=== PATIENT | female | born 1935 | race Caucasian/White ===

== ENCOUNTER 2021-04-19 03:06 | Emergency (ER) | payer OTHER ==
[~2021-04-19] VITALS: Ht 172.7 cm; Wt 60.3 kg
--- NOTE | 2021-04-19 03:12 | NUR ---
[id number]. MID STERNAL CP 30 MIN FREIGHT CONDUCTOR NON RADIATING SHARP. PATIENT ALERT AND ORIENTED X3. AMBULATORY WITH NON LABORED BREATHING. PATIENT ON MONITOR AND POX.
--- NOTE | 2021-04-19 03:41 | NUR ---
COVID SWAB DONE AND SENT TO LAB
--- NOTE | 2021-04-19 03:41 | NUR ---
[facility] @ BEDSIDE
[2021-04-19 03:54] LABS: BASOPHILS % (AUTO) 0.7 % (0.0-2.0); EOSINOPHILS % (AUTO) 2.2 % (0.0-6.0); HEMATOCRIT 25 % (33-45); HEMOGLOBIN 8.2 g/dL (11.5-14.8); LYMPHOCYTES # (AUTO) 1.4 K/uL (0.8-4.8); LYMPHOCYTES % (AUTO) 25.6 % (20.0-44.0); MEAN CORPUSCULAR HGB CONC 33 g/dl (31.0-36.0); MEAN CORPUSCULAR VOLUME 83 fL (82-100); MONOCYTES # (AUTO) 0.8 K/uL (0.1-1.30); MONOCYTES % (AUTO) 13.7 % (2.0-12.0); NEUTROPHILS # (AUTO) 3.2 K/uL (1.8-8.9); NEUTROPHILS % (AUTO) 57.8 % (43.0-81.0); PLATELET COUNT (AUTO) 290 K/uL (150-450); RED BLOOD CELL COUNT(AUTO) 3.01 MIL/uL (4.0-5.2); WHITE BLOOD COUNT (AUTO) 5.5 K/uL (4.3-11.0)
[2021-04-19 04:11] LABS: ALANINE AMINOTRANSFERASE 27 U/L (12-78); ALBUMIN 3.6 g/dL (3.4-5.0); ALKALINE PHOSPHATASE 62 U/L (46-116); ASPARTATE AMINOTRANSFERASE 23 U/L (15-37); BILIRUBIN,DIRECT 0.1 mg/dL (0.0-0.2); BILIRUBIN,TOTAL 0.3 mg/dL (0.2-1.0); CALCIUM, SERUM 8.8 mg/dL (8.5-10.1); CARBON DIOXIDE 25 mmol/L (21-32); GLUCOSE 87 mg/dL (74-106); TOTAL PROTEIN, SERUM 6.8 g/dL (6.4-8.2); UREA NITROGEN, BLOOD 37 mg/dL (7-18)
[2021-04-19 04:22] LABS: CHLORIDE 102 mmol/L (98-107); POTASSIUM 3.8 mmol/L (3.5-5.1); SODIUM SERUM 135 mmol/L (136-145)
--- NOTE | 2021-04-19 04:54 | NUR ---
MOVE PACKET AND CLINICALS SUBMITTED
[2021-04-19] MEDS ORDERED: APIX5TAB PO (07:09)
[2021-04-19] MEDS ORDERED: GABA-532 PO (07:09)
[2021-04-19] MEDS ORDERED: DULO20CA19 PO (07:09)
[2021-04-19] MEDS ORDERED: METOPROLOL TARTRATE 25 MG TABLET PO ONE (07:30)
[2021-04-19] MEDS ORDERED: METOPROLOL TARTRATE 25 MG TABLET ONE (07:46)
--- NOTE | 2021-04-19 07:55 | NUR ---
ASSUME PT CARE, KEPT COMFORTABLE. ON MONITOR W/ STABLE VITALS. MEDICATED ORDERED. WILL CONTINUE TO MONITOR.
--- NOTE | 2021-04-19 09:04 | NUR ---
JUNE FROM [facility]: PT GOING [place] [facility] [place] [facility] CLARISSA (NURSE) GIVE REPORT TO: [phone] ETA 1400 WITH [facility]
[2021-04-19 12:03] VITALS: BP 146/87
--- NOTE | 2021-04-19 12:03 | NUR ---
PT AWAKE, STABLE VITALS. PROVIDED W LUNCH TRAY. WWILL CONTINUE TO MONITOR.
--- NOTE | 2021-04-19 13:05 | NUR ---
REPORT GIVEN TO [facility]. AWAITING TRANSPORT.
--- NOTE | 2021-04-19 14:45 | NUR ---
TRANSPORTED TO [facility]IA [facility]. CONDITION: GUARDED.
== END 2021-04-19 14:46 | disposition short-term general hospital (02) ==
LOC: ER 03:14
DX: R07.2 Precordial pain (principal); I48.91 Unspecified atrial fibrillation; Z20.822 Contact with and (suspected) exposure to COVID-19; J90 Pleural effusion, not elsewhere classified; I11.9 Hypertensive heart disease without heart failure; G62.9 Polyneuropathy, unspecified; D64.9 Anemia, unspecified
CPT/HCPCS: 36415; 71045-TC; 80048-TC; 80076-TC; 84484-TC; 85025-TC; 85730-TC; C9803

== ENCOUNTER 2023-02-15 01:05 | Emergency (ER) | payer OTHER ==
[~2023-02-15] VITALS: Ht 165.1 cm; Wt 68.0 kg
[~2023-02-15 01:05] MED LIST: APIX5TAB PO; DULO20CA19 PO; GABA-532 PO
[2023-02-15] MEDS ORDERED: TDAP [DIPH/PERTUSSIS/TET] 0.5 ML VIAL IM ONE ×2 (01:27→01:30)
[2023-02-15 02:29] VITALS: BP 159/101; TEMP 97.7; O2SAT 97
== END 2023-02-15 02:29 ==
LOC: ER 01:16
DX: Z71.1 Person with feared health complaint in whom no diagnosis is made (principal); S81.811D Laceration without foreign body, right lower leg, subsequent encounter; X58.XXXD Exposure to other specified factors, subsequent encounter
CPT/HCPCS: 90715